=== PATIENT | female | born 1955 | race Caucasian/White ===

== ENCOUNTER 2017-09-20 07:31 | Day surgery (SDC) | END 2017-09-20 14:00 | disposition home or self-care (01) ==

== ENCOUNTER 2017-11-15 01:26 | Inpatient (IN) | END 2017-11-20 18:25 | disposition home or self-care (01) | DRG 392 ==

== ENCOUNTER 2017-12-03 15:48 | Emergency (ER) | END 2017-12-03 18:21 | disposition home or self-care (01) ==

== ENCOUNTER 2018-02-21 09:22 | Day surgery (SDC) | END 2018-02-21 13:00 | disposition home or self-care (01) ==

== ENCOUNTER 2018-02-28 09:20 | Inpatient (IN) | END 2018-03-06 16:00 | disposition home or self-care (01) | DRG 351 ==

== ENCOUNTER 2018-12-12 13:05 | Emergency (ER) | payer BC ==
[~2018-12-12] VITALS: Ht 167.6 cm; Wt 105.0 kg
[~2018-12-12 13:05] MED LIST: APIX5TAB PO; ATOR20TA38 PO; BACL10TA PO; BUPR300T4 PO; DOCU-216 PO; DOCU250C58 PO; ESOM40CA PO; GABA100C14 PO; LEVO250T22 PO; LINA145C PO; LORA0.5T PO; LORA10TA3 PO; METO-429 PO; METO-448 PO; MYCO500T3 PO; NITR0.4T39 SL; OXYB10TA6 PO; OXYC-438 PO; RANI150T5 PO; SIMV20TA PO; TAMS0.4C2 PO; TRAM50TA PO; VENL150C94 PO; VENL225T PO; VENL75CA89 PO; ZOLP10TA5 PO
[2018-12-12 13:30] VITALS: Ht 167.6 cm; Wt 105.0 kg
--- NOTE | 2018-12-12 16:16 | ERD ---
ER Documentation Chief Complaint Chief Complaint R chest port-a-cath unable to access today: WNL 2 wks ago on IVIG tx HPI Patient history of myasthenia gravis with a right chest port for every 2 weeks IVIG has had issues with peripheral infusion in the past secondary to sclerosing of the vein. Had recent obstruction of the right port after declotting 1 week ago presenting today with pain with infusion in the port. ROS All systems reviewed and are negative except as per history of present illness. Medications Home Meds Reported Medications Loratadine* (Loratadine*) 10 Mg Tablet, 10 MG PO DAILY, #30 TAB 12/12/18 Docusate Sodium* (Colace*) 250 Mg Capsule, 250 MG PO BID, #60 CAP 12/12/18 Tramadol Hcl* (Ultram*) 50 Mg Tablet, 50 MG PO Q6H PRN for PAIN, TAB 12/12/18 Apixaban* (Eliquis*) 5 Mg Tablet, 5 MG PO BID, TAB 12/12/18 Gabapentin* (Gabapentin*) 100 Mg Capsule, 300 MG PO QHS, #90 CAP 12/12/18 Linaclotide (LINZESS) 145 Mcg Capsule, 145 MCG PO DAILY, #30 CAP 12/12/18 Metoprolol Tartrate* (Lopressor*) 25 Mg Tab, 25 MG PO BID, #60 TAB 12/12/18 Esomeprazole Mag Trihydrate (Nexium) 40 Mg Capsule.dr, 40 MG PO BID, #60 CAP 12/12/18 Venlafaxine Hcl* (Venlafaxine Hcl ER*) 150 Mg Cap.er.24h, 150 MG PO DAILY, CAP 12/12/18 Venlafaxine Hcl* (Venlafaxine Hcl ER*) 75 Mg Cap.er.24h, 75 MG PO DAILY, CAP 12/12/18 Oxybutynin Chloride* (Ditropan* XL) 10 Mg Tab.er.24, 10 MG PO DAILY, TAB.SA 12/12/18 Mycophenolate Mofetil* (Mycophenolate Mofetil*) 500 Mg Tablet, 1000 MG PO BID, TAB 12/12/18 Simvastatin* (Zocor*) 20 Mg Tablet, 20 MG PO QHS, #30 TAB 12/12/18 Ranitidine Hcl* (Ranitidine Hcl*) 150 Mg Tablet, 150 MG PO HS, #30 TAB 12/12/18 Baclofen* (Baclofen*) 10 Mg Tablet, 10 MG PO DAILY, TAB 12/12/18 Zolpidem Tartrate* (Zolpidem Tartrate*) 10 Mg Tablet, 10 MG PO QHS PRN for INSOMNIA, #30 TAB 12/12/18 Lorazepam* (Lorazepam*) 0.5 Mg Tablet, 0.5 MG PO HS PRN for ANXIETY, TAB 12/12/18 Discontinued Reported Medications Baclofen* (Baclofen*) 10 Mg Tablet, 10 MG PO QHS, TAB 02/21/18 Tamsulosin Hcl* (Tamsulosin Hcl*) 0.4 Mg Cap.er.24h, 0.4 MG PO HS, CAP 09/20/17 Zolpidem Tartrate* (Zolpidem Tartrate*) 10 Mg Tablet, 10 MG PO QHS PRN for INSOMNIA, #30 TAB 09/20/17 Atorvastatin Calcium* (Atorvastatin Calcium*) 20 Mg Tablet, 20 MG PO QHS, #30 TAB 09/20/17 Mycophenolate Mofetil* (Mycophenolate Mofetil*) 500 Mg Tablet, 1000 MG PO BID, TAB 09/20/17 Venlafaxine Hcl* (Venlafaxine Hcl ER*) 225 Mg Tab.er.24, 225 MG PO DAILY, TAB.SA 09/20/17 Esomeprazole Mag Trihydrate (Nexium) 40 Mg Capsule.dr, 40 MG PO DAILY, #30 CAP 09/20/17 Bupropion Hcl* (Bupropion XL*) 300 Mg Tab.sr.24h, 450 MG PO DAILY, TAB.SA 09/20/17 Linaclotide (LINZESS) 145 Mcg Capsule, 145 MCG PO DAILY, #30 CAP 09/20/17 Docusate Sodium* (Colace*) 250 Mg Capsule, 250 MG PO BID PRN for CONSTIPATION, #60 CAP 09/20/17 Nitroglycerin* (Nitrostat*) 0.4 Mg Tab.subl, 0.4 MG SL Q5MIN PRN for CHEST PAIN, BOTTLE 09/20/17 Discontinued Scripts Docusate Sodium (Dok) 100 Mg Capsule, 100 MG PO Q12H PRN for CONSTIPATION for 10 Days, CAP Prov:LARS VIDAL MD 03/06/18 Oxycodone HCl/Acetaminophen (Oxycodone-Acetaminophen 5-325) 1 Each Tablet, 1 TAB PO Q4H PRN for MODERATE PAIN LEVEL 4-6 for 10 Days, TAB Prov:LARS VIDAL MD 03/06/18 Metoprolol Tartrate* (Lopressor*) 50 Mg Tab, 12.5 MG PO BID for 30 Days, TAB Prov:LARS VIDAL MD 03/06/18 Apixaban* (Eliquis*) 5 Mg Tablet, 5 MG PO BID for 30 Days, TAB Prov:LARS VIDAL MD 03/06/18 Levofloxacin* (Levaquin*) 250 Mg Tablet, 250 MG PO BID for 4 Days, TAB Prov:LARS VIDAL MD 03/06/18 Allergies Allergies: Coded Allergies: Penicillins (Verified Allergy, Unknown, ANAPHYLACTIC REACTION, 12/12/18) PMhx/Soc History of Surgery: Yes Anesthesia Reaction: No Hx Neurological Disorder: No Hx Respiratory Disorders: No Hx Cardiac Disorders: No Hx Psychiatric Problems: No Hx Miscellaneous Medical Probl: Yes (HTN, myasthenia gravis on IVIG, depression , urinary retention ) Hx Alcohol Use: No Hx Substance Use: No Hx Tobacco Use: No Smoking Status: Never smoker Physical Exam Vitals Vital Signs Date Temp Pulse Resp B/P (MAP) Pulse Ox O2 O2 Flow FiO2 Time Delivery Rate 12/12/18 98.4 67 16 140/67 97 13:30 (91) Physical Exam Const: No acute distress Head: Atraumatic Eyes: Normal Conjunctiva ENT: Normal External Ears, Nose and Mouth. Neck: Full range of motion. No meningismus. Resp: Clear to auscultation bilaterally Cardio: Regular rate and rhythm, no murmurs Abd: Soft, non tender, non distended. Normal bowel sounds Skin: No petechiae or rashes right chest with port clear dry and intact Back: No midline or flank tenderness Ext: No cyanosis, or edema Neur: Awake and alert Psych: Normal Mood and Affect Procedures/MDM Patient here for evaluation for right port pain with infusion. Chest x-ray with appropriate positioning of the port, no pneumothorax, no pneumomediastinum. Skin with normal exam with no evidence of infection. Port is flushing. Will have patient follow-up with primary care doctor for possible exchange of port in a nonurgent manner. JUDITH ROLDAN MD Dec 12, 2018 16:16
[2018-12-12] MEDS ORDERED: ALTEPLASE (CATHFLO) 2 MG INJ CATHETER ONE (18:00)
[2018-12-12 19:40] VITALS: BP 146/81; PULSE 78; RESP 18
== END 2018-12-12 19:43 | disposition home or self-care (01) ==
LOC: E/R 13:05
DX: T82.848A Pain due to vascular prosthetic devices, implants and grafts, initial encounter (principal); I10 Essential (primary) hypertension; Y71.2 Prosthetic and other implants, materials and accessory cardiovascular devices associated with adverse incidents; Z79.01 Long term (current) use of anticoagulants
CPT/HCPCS: 71045; J2997; Z7502

== ENCOUNTER 2019-01-03 07:56 | Day surgery (SDC) | payer BC ==
--- NOTE | 2019-01-02 21:24 | PREAC ---
Date/Time of Note Date/Time of Note DATE: 01/02/19 TIME: 21:20 Anesthesia Eval and Record Evaluation Time Pre-Procedure Interview DATE: 01/02/19 TIME: 21:20 Age 63 Sex female Preoperative diagnosis clotting yoly cath, myasthenia gravis (IVIG infusions) Planned procedure portacath replacement Past Medical History Past Medical History: Includes Cardio: HTN, Dyslipidemia, CAD (hx chest pain 2017, negative stress test, negative troponins, normal echo), Arrythmia (atrial fibrillation) Neuro: Other GI: Obesity Psych: Other (agitation) Surgery & Anesthesia Issues No known issue Meds Anticoagulation: Yes (Eliquis) Beta Carissa within 24 hr: Yes Reported Medications Loratadine* (Loratadine*) 10 Mg Tablet, 10 MG PO DAILY, #30 TAB 12/12/18 Docusate Sodium* (Colace*) 250 Mg Capsule, 250 MG PO BID, #60 CAP 12/12/18 Tramadol Hcl* (Ultram*) 50 Mg Tablet, 50 MG PO Q6H PRN for PAIN, TAB 12/12/18 Apixaban* (Eliquis*) 5 Mg Tablet, 5 MG PO BID, TAB 12/12/18 Gabapentin* (Gabapentin*) 100 Mg Capsule, 300 MG PO QHS, #90 CAP 12/12/18 Linaclotide (LINZESS) 145 Mcg Capsule, 145 MCG PO DAILY, #30 CAP 12/12/18 Metoprolol Tartrate* (Lopressor*) 25 Mg Tab, 25 MG PO BID, #60 TAB 12/12/18 Esomeprazole Mag Trihydrate (Nexium) 40 Mg Capsule.dr, 40 MG PO BID, #60 CAP 12/12/18 Venlafaxine Hcl* (Venlafaxine Hcl ER*) 150 Mg Cap.er.24h, 150 MG PO DAILY, CAP 12/12/18 Venlafaxine Hcl* (Venlafaxine Hcl ER*) 75 Mg Cap.er.24h, 75 MG PO DAILY, CAP 12/12/18 Oxybutynin Chloride* (Ditropan* XL) 10 Mg Tab.er.24, 10 MG PO DAILY, TAB.SA 12/12/18 Mycophenolate Mofetil* (Mycophenolate Mofetil*) 500 Mg Tablet, 1000 MG PO BID, TAB 12/12/18 Simvastatin* (Zocor*) 20 Mg Tablet, 20 MG PO QHS, #30 TAB 12/12/18 Ranitidine Hcl* (Ranitidine Hcl*) 150 Mg Tablet, 150 MG PO HS, #30 TAB 12/12/18 Baclofen* (Baclofen*) 10 Mg Tablet, 10 MG PO DAILY, TAB 12/12/18 Zolpidem Tartrate* (Zolpidem Tartrate*) 10 Mg Tablet, 10 MG PO QHS PRN for INSOMNIA, #30 TAB 12/12/18 Lorazepam* (Lorazepam*) 0.5 Mg Tablet, 0.5 MG PO HS PRN for ANXIETY, TAB 12/12/18 Meds reviewed: Yes Allergies Coded Allergies: Penicillins (Verified Allergy, Unknown, ANAPHYLACTIC REACTION, 12/12/18) Uncoded Allergies: PLASTIC TAPE (Allergy, Unknown, 01/03/19) Allergies Reviewed: Yes Labs/Studies Labs Reviewed: Reviewed by anesthesiologist test: N/A Studies: ECG, CXR, Stress test, 2D Echo (normal EF, no valvular disease) ASA Physical Status ASA physical status: 3 Emergency: None Planned Anesthetic General/MAC: MAC Planned Pain Management Parenteral pain med, Local by surgeon Pre-operative Attestations Prior to commencing anesthesia and surgery, the patient was re-evaluated, there was verification of: *The patient's identity *The results of appropriate recent lab work and preoperative vital signs *The above evaluation not changing prior to induction *Anesthetic plan, risk benefits, alternative and complications discussed with patient/family; questions answered; patient/family understands, accepts and wishes to proceed. JERZY CLEVELAND Jan 02, 2019 21:24
[~2019-01-03 07:56] MED LIST changes: -ATOR20TA38 PO; -BUPR300T4 PO; -DOCU-216 PO; -LEVO250T22 PO; -METO-429 PO; -NITR0.4T39 SL; -OXYC-438 PO; -TAMS0.4C2 PO; -VENL225T PO
== END 2019-01-03 09:15 | disposition home or self-care (01) ==
LOC: SDS 07:56
PROVIDERS: ATTEND Hospitalist
DX: G70.00 Myasthenia gravis without (acute) exacerbation (principal); Z53.09 Procedure and treatment not carried out because of other contraindication; Z79.01 Long term (current) use of anticoagulants; Z87.891 Personal history of nicotine dependence

== ENCOUNTER 2019-01-10 09:28 | Day surgery (SDC) | payer BC ==
[2019-01-09 14:41] VITALS: BMI 38.3
[~2019-01-10] VITALS: Ht 162.6 cm; Wt 105.1 kg
[2019-01-10 10:14] VITALS: Ht 162.6 cm; Wt 105.1 kg
[2019-01-10 10:17] VITALS: BP 138/69; PULSE 68; RESP 16
[2019-01-10] MEDS ORDERED: SOD CHLORIDE 0.9% 1,000 ML IV SCH (11:00)
[2019-01-10] MEDS ORDERED: POLYMYXIN/BACITRACIN 1L IRRIG ONE (11:33)
[2019-01-10] MEDS ORDERED: FENTAnyl 50 MCG/ML VIAL ONE ×2 (11:49→12:21)
[2019-01-10] MEDS ORDERED: CEFAZOLIN 1 GM/50 ML (PMX) 0 ML IVPB ONE (11:49)
[2019-01-10] MEDS ORDERED: LIDOCAINE 1% (MDV) 20 ML INJ ONE ×2 (11:49→12:38)
[2019-01-10] MEDS ORDERED: HEPARIN 1000 UNITS/ML 10 ML INJ ONE (11:49)
[2019-01-10] MEDS ORDERED: MIDAZOLAM 1 MG/ML 2 ML INJ ONE (11:49)
[2019-01-10] MEDS ORDERED: CEFAZOLIN 2 GM/50 ML (PMX) 50 ML IVPB ONE (12:01)
[2019-01-10 13:48] VITALS: BP 143/65; PULSE 58; RESP 16
[2019-01-10] MEDS ORDERED: HYDROCODONE/APAP (5/325) TAB PO ONE (14:00)
== END 2019-01-10 15:15 | disposition home or self-care (01) ==
LOC: CCL 09:28 → SDS 09:32 → CCL 15:15
PROVIDERS: ATTEND Internal Medicine
DX: Z45.2 Encounter for adjustment and management of vascular access device (principal); G70.00 Myasthenia gravis without (acute) exacerbation
CPT/HCPCS: 36590; C1788; J0690; J1644; J2250; J3010; Z7610

== ENCOUNTER 2019-03-21 16:44 | Emergency (ER) | payer BC ==
[~2019-03-21] VITALS: Ht 162.6 cm; Wt 106.0 kg
[~2019-03-21 16:44] MED LIST changes: +CYCL10TA7 PO; +FURO40TA4 PO; +GABA300C16 PO; +HYDR-3601 PO; +HYDR-4011 PO; +HYDR2TAB3 PO; -VENL75CA89 PO
[2019-03-21 16:46] VITALS: Ht 162.6 cm; Wt 106.0 kg
[2019-03-21] MEDS ORDERED: ONDANSETRON 4 MG INJ IV STA (20:07)
[2019-03-21] MEDS ORDERED: SOD CHLORIDE 0.9% 1,000 ML IV STA (20:07)
[2019-03-21] MEDS ORDERED: HYDROmorphONE 1 MG/ML SYG IV STA (20:07)
[2019-03-21] MEDS ORDERED: HYDROmorphONE 0.5 MG/0.5 ML SYG IV STA (21:45)
[2019-03-21 22:14] VITALS: BP 137/76; PULSE 69; RESP 14
== END 2019-03-21 22:14 | disposition home or self-care (01) ==
LOC: E/R 16:44
DX: G89.18 Other acute postprocedural pain (principal); I10 Essential (primary) hypertension; Z79.01 Long term (current) use of anticoagulants; Z87.891 Personal history of nicotine dependence; Z96.652 Presence of left artificial knee joint
CPT/HCPCS: 71045; 85025; 85610; 85730; 87040; 93971; 96374; 96375; 96376; J1170; J2405; J7030; Z7502